=== PATIENT | female | born 2000 | race African-American/Black ===

== ENCOUNTER 2022-07-16 09:32 | Emergency (ER) | payer MEDICAID ==
[~2022-07-16] VITALS: Ht 172.7 cm; Wt 57.0 kg
[2022-07-16 09:45] VITALS: BP 124/76
[2022-07-16] MEDS ORDERED: KETOROLAC 30MG/ML VIAL IM ONE (11:45)
[2022-07-16] MEDS ORDERED: IBUP-2028 MT (13:17)
[2022-07-16] MEDS ORDERED: KETOROLAC 30MG/ML VIAL IM NR (13:30)
== END 2022-07-16 14:26 | disposition home or self-care (01) ==
LOC: ER 10:59
DX: R07.89 Other chest pain (principal); Z88.0 Allergy status to penicillin
CPT/HCPCS: 71045; 81025; 93005; 99283; J1885